=== PATIENT | female | born 1990 | race Caucasian/White ===

== ENCOUNTER 2016-08-30 12:24 | Emergency (ER) | payer OTHER ==
[2016-08-30 12:32] VITALS: BP 128/87; PULSE 48; RESP 20; TEMP 97.9; O2SAT 100
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
== END 2016-08-30 13:24 | disposition home or self-care (01) ==
DX: S06.0X0A Concussion without loss of consciousness, initial encounter (principal); W50.0XXA Accidental hit or strike by another person, initial encounter; Y99.8 Other external cause status